=== PATIENT | female | born 1950 ===

== ENCOUNTER 2017-03-09 03:49 | Observation (INO) | payer MEDICARE, OTHER ==
[2017-03-09 03:50] VITALS: BMI 30.9
--- NOTE | 2017-03-09 04:45 | ED PDOC ---
HPI: General Adult Time Seen by Provider: 03/09/17 04:04 Chief Complaint (Nursing): GI Problem Chief Complaint (Provider): dizziness, vomiting History Per: Patient History/Exam Limitations: no limitations Onset/Duration Of Symptoms: Hrs Have you had recent travel within the past 21 days to any of the following countries: [place], [place], [place] or [place]?: No Current Symptoms Are (Timing): Still Present Additional Complaint(s): 66yo female with PMHx including migraines, diabetes, and hypercholesterolemia presents to the ED with c/o room-spinning dizziness and vomiting (4-5 episodes) that began at 2300 last night. Patient states dizziness is worse when she moves her head. Further reports ringing sensation in her left ear. Denies abdominal pain, diarrhea, headache, chest pain. PCP: Dr. Iqbal Past Medical History Reviewed: Historical Data, Nursing Documentation, Vital Signs Vital Signs: Last Vital Signs Temp 97.8 F 03/10/17 08:13 Pulse 63 03/10/17 09:00 Resp 18 03/10/17 08:13 BP 152/71 H 03/10/17 09:08 Pulse Ox 99 03/10/17 11:45 - Medical History PMH: Diabetes, Hypercholesterolemia, Migraine Denies: Chronic Kidney Disease - Surgical History Surgical History: No Surg Hx - Family History Family History: States: No Known Family Hx - Home Medications Home Medications: Ambulatory Orders Medication Instructions Recorded Aspirin 81 mg PO DAILY 05/19/14 Ramipril 5 mg PO DAILY 05/19/14 traMADol [Ultram] 50 mg PO Q6H PRN #15 tab 06/11/16 - Allergies Allergies/Adverse Reactions: Allergies Allergy/AdvReac Type Severity Reaction Status Date / Time No Known Allergies Allergy Verified 03/09/17 04:59 Review of Systems ROS Statement: Except As Marked, All Systems Reviewed And Found Negative ENT: Positive for: Other (ringing in left ear ) Cardiovascular: Negative for: Chest Pain Gastrointestinal: Positive for: Vomiting. Negative for: Abdominal Pain, Diarrhea Neurological: Positive for: Dizziness. Negative for: Headache Physical Exam - Reviewed Nursing Documentation Reviewed: Yes Vital Signs Reviewed: Yes - Physical Exam Appears: Positive for: Well, No Acute Distress (uncomfortable ) Head Exam: Positive for: ATRAUMATIC, NORMAL INSPECTION, NORMOCEPHALIC Skin: Positive for: Normal Color, Warm, Dry Eye Exam: Positive for: Normal appearance, EOMI, PERRL. Negative for: Nystagmus ENT: Positive for: Normal ENT Inspection Neck: Positive for: Normal, Painless ROM, Supple Cardiovascular/Chest: Positive for: Regular Rate, Rhythm. Negative for: Murmur , Tachycardia Respiratory: Positive for: Normal Breath Sounds. Negative for: Wheezing, Respiratory Distress Gastrointestinal/Abdominal: Positive for: Normal Exam, Soft. Negative for: Tenderness Back: Positive for: Normal Inspection. Negative for: L CVA Tenderness, R CVA Tenderness Extremity: Positive for: Normal ROM. Negative for: Deformity, Swelling Neurologic/Psych: Positive for: Alert, web services manager II-XII (intact ), Oriented. Negative for: Motor/Sensory Deficits, Aphasia, Facial Droop - Laboratory Results Result Diagrams: 03/10/17 06:30 03/10/17 06:30 - ECG ECG: Positive for: Interpreted By Me, Viewed By Me ECG Rhythm: Positive for: Normal QRS, Sinus Bradycardia (rate of 54 bpm, no ST changes ) O2 Sat by Pulse Oximetry: 99 Pulse Ox Interpretation: Normal (RA) Medical Decision Making Medical Decision Makin: Impression: dizziness and vomiting DDx: central vs. peripheral vertigo For central vertigo r/o brain mass vs. acoustic neuroma For peripheral vertigo r/o vestibular syndrome vs. benign positional vertigo Also r/o cardiac arrhythmia Plan: CT head EKG Meclizine 25mg PO, Zofran 4mg IV reassess 0558: CT head: FINDINGS: No intracranial hemorrhage. No intracranial edema. No evidence of infarct. The sinuses and mastoid air cells are clear. IMPRESSION: No acute findings. 0647: Patient complaining of persistent dizziness not improved after medications and difficulty ambulating secondary to vertigo and dizziness. Will admit patient to Dr. Iqbal. Scribe Attestation: Documented by Tang Gotti acting as a scribe for Alina Juarez MD. Provider Scribe Attestation: All medical record entries made by the Scribe were at my direction and personally dictated by me. I have reviewed the chart and agree that the record accurately reflects my personal performance of the history, physical exam, medical decision making, and the department course for this patient. I have also personally directed, reviewed, and agree with the discharge instructions and disposition. Disposition - Clinical Impression Clinical Impression: Vertigo - Patient ED Disposition Is Patient to be Admitted: Yes Discussed With DrGeeta: Joaquín Iqbal Doctor Will See Patient In The: Hospital - Disposition Disposition Time: 06:50 Condition: FAIR - Pt Status Changed To: Hospital Disposition Of: Observation - POA Present On Arrival: None
[2017-03-09 05:36] LABS: BASO # 0.1 K/uL (0.0-0.2); BASO % 0.9 % (0.0-2.0); EOS # 0.3 K/uL (0.0-0.7); EOS % 3.8 % (0.0-4.0); HEMATOCRIT 37.6 % (34.0-47.0); LYMPH # 2.6 K/uL (1.0-4.3); LYMPH % 32.6 % (20.0-40.0); MEAN CELL VOLUME 92.3 fl (81.0-99.0); MEAN CORPUSCULAR HGB CONC 33.6 g/dL (33.0-37.0); MONO # 0.7 K/uL (0.0-0.8); MONO % 9.4 % (0.0-10.0); NEUT # 4.2 K/uL (1.8-7.0); NEUT % 53.3 % (50.0-75.0); RED CELL DISTRIBUTION WIDTH 12.9 % (11.5-14.5); WHITE BLOOD COUNT 7.9 K/uL (4.8-10.8)
[2017-03-09 05:50] LABS: BLOOD UREA NITROGEN 16 mg/dl (7-17); CALCIUM 8.9 mg/dL (8.4-10.2); CARBON DIOXIDE 23 mmol/L (22-30); CHLORIDE 107 mmol/L (98-107); GFR AFRICAN-AMERICAN > 60; GLUCOSE,RANDOM 171 mg/dL (65-105); SODIUM 141 mmol/l (132-148)
--- NOTE | 2017-03-09 05:58 | CT ---
EXAM: CT Head Without Intravenous Contrast CLINICAL HISTORY: 66 years old, female; Signs and symptoms; Dizziness TECHNIQUE: Axial computed tomography images of the head/brain without intravenous contrast. This CT exam was performed using one or more of the following dose reduction techniques: automated exposure control, adjustment of the mA and/or kV according to patient size, and/or use of iterative reconstruction technique. Coronal and sagittal reformatted images were created and reviewed. EXAM DATE/TIME: 03/09/2017 4:53 AM COMPARISON: No relevant prior studies available. FINDINGS: No intracranial hemorrhage. No intracranial edema. No evidence of infarct. The sinuses and mastoid air cells are clear. IMPRESSION: No acute findings.
[2017-03-09 07:43] LABS: POTASSIUM 4.3 MMOL/L (3.6-5.0)
--- NOTE | 2017-03-09 08:37 | CARD ---
APPROVED REPORT EKG Measurement Heart [id number] ID [id number] <Conclusion> Sinus bradycardia Otherwise normal ECG
[2017-03-09] MEDS: Sodium Chloride 0.9% 1,000 ML IV SCH (16:24)
--- NOTE | 2017-03-09 18:20 | CON ---
DATE: 03/09/2017 CHIEF COMPLAINT: Dizziness. HISTORY OF PRESENT ILLNESS: This is a 66-year-old woman with a past medical history of migraines, ty pe 2 diabetes and hypercholesterolemia who presented to the hospital because of a spinning sensation of the room and episodes of vomiting 4-5 times and ringing in the left ear. She said when she moves her head in a right or left direction she gets a spinning sensation of the room. She feels off kate ce with the spinning sensation of the room. Currently, has subsided and is doing much better. She i s able to move around without any difficulty. Neuro exam is nonfocal except for some mild diabetic p eripheral neuropathy features on examination. CT head showed no acute intracranial abnormality. I p laced her on meclizine 25 p.o. b.i.d. in addition to aspirin 81 mg daily. MRI of the brain has been ordered but is currently pending, has not been done since morning. No focal weakness in the extremit ies or paresthesias. PAST MEDICAL HISTORY: History of diabetes, hypercholesterolemia and migraines. REVIEW OF SYSTEMS: A 14-point review of systems is negative except for the HPI. SOCIAL HISTORY: No illicit drug use, smoking, or ETOH abuse. FAMILY HISTORY: Noncontributory. MEDICATIONS: Reviewed via nurses' reconciliation sheet. PHYSICAL EXAMINATION: VITAL SIGNS: Temperature 98.1, pulse rate 60, blood pressure 130/64, respiratory rate of 18, oxygen 98% on room air. GENERAL: The patient is sitting up in bed in no acute distress. HEENT: Atraumatic, normocephalic. PERRLA. Extraocular muscles intact. NECK: Supple, no JVD, no adenopathy noted. LUNGS: Clear to auscultation. No adventitious sounds. HEART: S1, S2, normal rate and rhythm. No murmurs, rubs, or gallops. ABDOMEN: Soft, nontender, nondistended. Bowel sounds are present. EXTREMITIES: No clubbing, no cyanosis. Peripheral pulses 2+ felt bilaterally. NEUROLOGIC: The patient is alert, oriented to person, place, month and year. Speech is fluent, with out any errors. Cranial nerves II through XII are intact. MOTOR: Moves all extremities equally. Toes downgoing bilaterally. SENSORY: Light touch, pinprick, proprioception, vibration . DTRs are 2+ throughout. COORDINATION: Kzimij-ji-auur intact. GAIT: Deferred for now. LABORATORIES: Sodium is 141, potassium 4.3, chloride 107, carbon dioxide 23, BUN of 16, creatinine 0 .6, random glucose of 171 ASSESSMENT AND PLAN: This is a 66-year-old woman with a history of migraines, history of diabetes on metformin, history of dyslipidemia and hypertension who came in with a spinning sensation of the geoff m associated with nausea and vomiting as well as ringing in the left ear. Currently, her neuro exam is nonfocal except for some mild diabetic peripheral neuropathy changes on examination, but overall i s doing well. CT head showed no acute intracranial abnormality. At this time her spinning sensation of the room is likely secondary to a positional vertigo, paroxysmal. Currently, MRI of the brain is pending; could do that as an outpatient if wanted but results are currently pending at this time. A t this time, recommend: 1. Meclizine 25 mg p.o. b.i.d. for acute onset of dizziness. Will need outpatient vestibular therap y as management and treatment. 2. Avoid certain medications like overuse of tramadol or Reglan, which can exacerbate vertiginous ep isodes. 3. She was found to be hypertensive systolically and diastolically in the Emergency Room. I recomme nd to keep her blood pressure between 130-140 mmHg and adjust her blood pressure medications. 4. She is clinically stable from my standpoint. Thank you for this consult. Please reconsult if any changes on the MRI. Blanco Patrick MD cc: [phone] TT: 03/09/2017 18:20:37 Confirmation # [id number] Dictation # [id number] la nena
[2017-03-09 23:46] VITALS: PULSE 63
[2017-03-10] MEDS: Sodium Chloride 0.9% 1,000 ML IV SCH (04:15)
[2017-03-10 05:05] VITALS: RESP 18
[2017-03-10 08:07] LABS: HEMATOCRIT 35.9 % (34.0-47.0); MEAN CELL VOLUME 92.3 fl (81.0-99.0); MEAN CORPUSCULAR HGB CONC 32.5 g/dL (33.0-37.0); RED CELL DISTRIBUTION WIDTH 13.2 % (11.5-14.5)
[2017-03-10 08:14] VITALS: BP 152/71; TEMP 97.8
[2017-03-10 08:36] LABS: ALB/GLOB RATIO 1.1 (1.0-2.1); ALKALINE PHOSPHATASE 69 U/L (38-126); ALT/SGPT 26 U/L (9-52); AST/SGOT 24 U/L (14-36); BILIRUBIN,TOTAL 0.4 mg/dl (0.2-1.3); BLOOD UREA NITROGEN 16 mg/dl (7-17); CALCIUM 8.3 mg/dL (8.4-10.2); CARBON DIOXIDE 25 mmol/L (22-30); CHLORIDE 107 mmol/L (98-107); GFR AFRICAN-AMERICAN > 60; GLUCOSE,RANDOM 134 mg/dL (65-105); POTASSIUM 3.9 MMOL/L (3.6-5.0); SODIUM 139 mmol/l (132-148); TOTAL PROTEIN 6.9 G/DL (6.3-8.2)
--- NOTE | 2017-03-10 09:50 | PN ---
DATE: 03/10/2017 The patient seen and examined. Interim events noted. Consults noted, appreciated. Neurology consul t noted and appreciated. The patient feels better. Dizziness resolved. No chest pain, no shortness of breath. PHYSICAL EXAMINATION: GENERAL: The patient is in no acute distress. VITAL SIGNS: Stable. HEART: S1, S2 normal, regular. LUNGS: Good bilateral air exchange. ABDOMEN: Soft, nontender. EXTREMITIES: No edema, no calf swelling, no tenderness, no acute ischemia. CENTRAL NERVOUS SYSTEM: Essentially unchanged. DIAGNOSTIC DATA: Available diagnostic data reviewed. Telemetry monitoring does not reveal significa nt arrhythmia. MRI is pending. Overall, the patient is clinically stable. Dizziness improved. The patient does not want to go to [facility]. The patient does not want to stay in the hospital. The patient wants to sign against medical ad vice. Risks and consequences of such signing AMA were explained to the patient. consequences includi ng, but not drink to , ____ which the patient understood, but the patient still wanted to leave against medical advice and does not want to stay in hospital at this time. The patient signed AMA pa per and the patient left the hospital. The patient will be followed up by primary care and consultan t. The patient was advised to do so. Joaquín Iqbal MD cc: [id number] TT: 03/10/2017 09:50:16 Confirmation # [id number] Dictation # [id number] tn
[2017-03-10 11:45] VITALS: O2SAT 99
--- NOTE | 2017-03-12 06:35 | HP ---
CHIEF COMPLAINT: Severe dizziness. HISTORY OF PRESENT ILLNESS: This is a 56-year-old female, known case of hypertension, diabetes and o besity, who was having severe dizziness which did not improve, so the patient was brought to [facility] Room for treatment. The patient was not able to get up on the stretcher and was admitted for [facility] management. REVIEW OF SYSTEMS: Positive for dizziness. Review of systems otherwise is negative for headache, lo ss of consciousness, chest pain, shortness of breath, nausea, vomiting, diarrhea, constipation, any n ew joint or extremity pain. Review of systems actually is positive for severe vomiting. Review of s ystems of all other organ systems is unremarkable. PAST MEDICAL HISTORY: Significant for hypertension, diabetes and obesity. PAST SURGICAL HISTORY: Unremarkable. PERSONAL HISTORY: The patient is currently a nonsmoker, nondrinker, no substance abuse. MEDICATIONS: The patient is on multiple medications, which is as per reconciliation sheet, which was reviewed in order. ALLERGIES: The patient is not allergic to any medication. FAMILY HISTORY: Noncontributory. PHYSICAL EXAMINATION: GENERAL: Well-built, well-nourished, overweight female in no acute respiratory distress. VITAL SIGNS: Temperature afebrile, pulse 88, respirations 18, blood pressure 136/76 without any orth ostatic changes. HEENT AND NECK: Pupils reacting to light. No JVD, no thyromegaly, no lymphadenopathy, no nystagmus. Normocephalic, atraumatic skull. HEART: S1, S2 normal, regular. No significant murmur, gallop or rub is heard. LUNGS: Shows good bilateral air exchange. No rales or rhonchi. ABDOMEN: Soft, nontender, no organomegaly, no fluid. Bowel sounds are plus. EXTREMITIES: No edema, no calf swelling. No tenderness, no acute ischemia. CENTRAL NERVOUS SYSTEM: Essentially unchanged other than dizziness. There is no sign of any acute g ross focal motor or sensory neurological deficit. DIAGNOSTIC DATA: Available diagnostic data reviewed. CAT scan of head is unremarkable. ADMITTING IMPRESSION: Severe dizziness, vertigo versus occipital cerebrovascular accident versus tra nsient ischemic attack, hypertension, diabetes type 2, obesity. PLAN: As ordered. Case and plan discussed with patient. Joaquín Iqbal MD cc: [id number] TT: 03/10/2017 10:28:45 rn
== END 2017-03-10 10:10 | disposition left against medical advice (07) ==
LOC: H.ER 03:49 → H.ERHOLD 06:56 → H.TEL 10:01
PROVIDERS: ADMIT Internal Medicine; ATTEND Internal Medicine
DX: H81.10 Benign paroxysmal vertigo, unspecified ear (principal); I10 Essential (primary) hypertension; E66.9 Obesity, unspecified; E11.42 Type 2 diabetes mellitus with diabetic polyneuropathy; E78.00 Pure hypercholesterolemia, unspecified; E78.5 Hyperlipidemia, unspecified; Z79.82 Long term (current) use of aspirin
CPT/HCPCS: 36415; 70450; 80048; 80053; 83036; 84484; 85025; 85027; 93005; 99285; G0378; J2405; J7040

== ENCOUNTER 2017-11-15 07:07 | Day surgery (SDC) | payer MEDICARE, OTHER ==
[2017-11-15] MEDS ORDERED: Lactated Ringer's 1,000 ML IV ONE (07:45)
[2017-11-15 08:04] VITALS: TEMP 99
[2017-11-15] MEDS ORDERED: Midazolam 2 MG/2 ML VIAL ONE (08:13)
[2017-11-15] MEDS ORDERED: Propofol 10 mg/ml Inj (20 ML) ONE (08:13)
[2017-11-15 09:12] VITALS: O2SAT 100
[2017-11-15 09:30] VITALS: BP 109/59; PULSE 67; RESP 20
== END 2017-11-15 09:32 | disposition home or self-care (01) ==
LOC: H.ENDO 07:07
PROVIDERS: ATTEND Internal Medicine Gastroenterology
DX: Z12.11 Encounter for screening for malignant neoplasm of colon (principal); K64.8 Other hemorrhoids; K57.30 Diverticulosis of large intestine without perforation or abscess without bleeding; R10.13 Epigastric pain; K22.8 Other specified diseases of esophagus; K22.10 Ulcer of esophagus without bleeding; K31.9 Disease of stomach and duodenum, unspecified; K44.9 Diaphragmatic hernia without obstruction or gangrene; K31.89 Other diseases of stomach and duodenum; E11.9 Type 2 diabetes mellitus without complications; I10 Essential (primary) hypertension; E03.9 Hypothyroidism, unspecified; K29.50 Unspecified chronic gastritis without bleeding
CPT/HCPCS: 43239; 45378; 82948; 88305; 88312; 88342; J2250; J2704; J7120